=== PATIENT | male | born 1970 | race African-American/Black ===

== ENCOUNTER 2016-12-02 21:23 | Emergency (ER) | payer OTHER, MEDICAID ==
[2016-12-02] MEDS ORDERED: IPRATROPIUM/ALBUTEROL 3 ML DEYVIAL ONE (21:27)
[2016-12-02 21:36] VITALS: TEMP 98.4
[2016-12-02] MEDS ORDERED: IPRATROPIUM/ALBUTEROL 3 ML DEYVIAL IH ONE (21:36)
--- NOTE | 2016-12-02 21:41 | EDPHY ---
H & P Stated Complaint: Asthma Attack & N/V - Personal History Current Tetanus/Diphtheria Vaccine: Yes Current Tetanus Diphtheria and Acellular Pertussis (TDAP): Yes - Medical/Surgical History Hx Asthma: Yes Hx Chronic Respiratory Disease: No Hx Diabetes: No Hx Cardiac Disease: No Hx Renal Disease: No Hx Cirrhosis: No Hx Alcoholism: No Hx HIV/AIDS: No Hx Splenectomy or Spleen Trauma: No Other PMH: asthma, ID, HTN - Social History Smoking Status: Current every day smoker Time Seen by Provider: 12/02/16 21:26 HPI/ROS: Chief complaint: Shortness of breath, abdominal pain HPI: 46-year-old male states he has a history of asthma complaining of shortness of breath today. Patient states that he has not been sleeping since using meth 2 days ago. He drinks some alcohol and a food this evening and which gave him some epigastric abdominal pain with some nausea. No vomiting. No fevers or chills. Has not been taking any of his usual medications. States he does not recall with these are. Does not normally take medications. He is currently homeless he states. Is visiting from [place]. Has had a nonproductive cough consistent with his prior asthma exacerbations. ROS: 10 point Review of Systems is negative except as noted in the HPI. Past medical history: Asthma, hypertension, lymphoma in remission Medications: None Allergies: No known drug allergies Physical exam: Gen: Awake, Alert, No Distress HEENT: Nose: no rhinorrhea Eyes: PERRLA, EOMI Mouth: Moist mucosa Neck: Supple, no JVD Chest: nontender, diffuse expiratory wheeze without focal rales or rhonchi Heart: S1, S2 normal, no murmur Abd: Soft, mild epigastric tenderness, no guarding Back: no CVA tenderness, no midline tenderness Ext: no edema, non-tender Skin: no rash Neuro: CN II-XII intact, Sensation grossly intact, Strength 5/5 in bilateral upper and lower extremities (Alex Castro) Constitutional: Initial Vital Signs Temperature (C) 36.9 C 12/02/16 21:34 Heart Rate 94 12/02/16 21:34 Respiratory Rate 28 H 12/02/16 21:34 Blood Pressure 150/101 H 12/02/16 21:34 O2 Sat (%) 87 L 12/02/16 21:34 O2 Delivery Mode Room Air Allergies/Adverse Reactions: No Known Allergies Allergy (Unverified 12/02/16 21:34) Home Medications: Medication Instructions Recorded Hydrocortisone 1% [Hydrocortisone 30 jim TP BID #1 cream 12/02/16 1% cream (*)] predniSONE 60 mg PO DAILY #9 tab 12/02/16 Medical Decision Making ED Course/Re-evaluation: Patient presenting with asthma exacerbation with epigastric pain. Patient's pain improved after treating of his wheeze. LFTs, CBC, chemistry and lipase are all normal. Patient is having improvement in his breathing after a DuoNeb. He will be given Solu-Medrol 125 mg IV and a continuous neb. I anticipate that he improve he will go home and follow up with [facility] as an outpatient. (Alex Castro) [id number]: She is feeling much better after continuous breathing treatment. Patient was signed over to me at 11:00 p.m. shift change from Dr. Castro. Plan for this patient is to have a continuous breathing treatment and then discharge she is doing much better on re-examination of his hands he has clear, no hypoxia , oxygen saturation 98% on room air. Patient feels comfortable with discharge planning. At time of discharge he did request some cream for his eczema. I prescribed him 1% hydrocortisone cream. Patient also asking for something to eat. (Matthew Patel) - Data Points Laboratory Results: Laboratory Results 12/02/16 21:30 12/02/16 21:30 12/02/16 12/02/16 21:30 21:30 WBC 8.92 10^3/uL 10^3/uL (3.80-9.50) RBC 4.94 10^6/uL 10^6/uL (4.40-6.38) Hgb 14.9 g/dL g/dL (13.7-17.5) Hct 45.7 % % (40.0-51.0) MCV 92.5 fL fL (81.5-99.8) MCH 30.2 pg pg (27.9-34.1) MCHC 32.6 g/dL g/dL (32.4-36.7) RDW 14.1 % % (11.5-15.2) Plt Count 236 10^3/uL 10^3/uL (150-400) MPV 11.8 fL H fL (8.7-11.7) Neut % (Auto) 56.5 % % (39.3-74.2) Lymph % (Auto) 27.2 % % (15.0-45.0) [place] % (Auto) 6.3 % % (4.5-13.0) Eos % (Auto) 8.9 % H % (0.6-7.6) Baso % (Auto) 1.0 % % (0.3-1.7) Nucleat RBC Rel Count 0.0 % % (0.0-0.2) Absolute Neuts (auto) 5.04 10^3/uL 10^3/uL (1.70-6.50) Absolute Lymphs (auto) 2.43 10^3/uL 10^3/uL (1.00-3.00) Absolute Monos (auto) 0.56 10^3/uL 10^3/uL (0.30-0.80) Absolute Eos (auto) 0.79 10^3/uL H 10^3/uL (0.03-0.40) Absolute Basos (auto) 0.09 10^3/uL 10^3/uL (0.02-0.10) Absolute Nucleated RBC 0.00 10^3/uL 10^3/uL (0-0.01) Immature Gran % 0.1 % % (0.0-1.1) Immature Gran # 0.01 10^3/uL 10^3/uL (0.00-0.10) Sodium 144 mEq/L mEq/L (134-144) Potassium 4.0 mEq/L mEq/L (3.5-5.2) Chloride 104 mEq/L mEq/L (97-110) Carbon Dioxide 27 mEq/l mEq/l (22-31) Anion Gap 13 mEq/L mEq/L (8-16) BUN 15 mg/dL mg/dL (7-23) Creatinine 0.9 mg/dL mg/dL (0.7-1.3) Estimated GFR > 60 Glucose 52 mg/dL L mg/dL (70-100) Calcium 9.6 mg/dL mg/dL (8.5-10.4) Total Bilirubin 0.6 mg/dL mg/dL (0.1-1.4) Conjugated Bilirubin 0.3 mg/dL mg/dL (0.0-0.5) Unconjugated Bilirubin 0.3 mg/dL mg/dL (0.0-1.1) AST 26 IU/L IU/L (17-59) ALT 30 IU/L IU/L (21-72) Alkaline Phosphatase 53 IU/L IU/L (38-126) Total Protein 7.4 g/dL g/dL (6.3-8.2) Albumin 4.4 g/dL g/dL (3.5-5.0) Lipase 124.0 IU/L IU/L (23-300) Medications Given: Discontinued Medications Albuterol (Proventil Neb) 10 ml IH EDNOW ONE Stop: 12/02/16 22:05 Last Admin: 12/02/16 22:35 Dose: 10 ml Albuterol/Ipratropium (Duoneb) 3 ml IH EDNOW ONE Stop: 12/02/16 21:37 Last Admin: 12/02/16 21:36 Dose: 3 ml Methylprednisolone Sodium Succinate (Solu-Medrol) 125 mg IVP EDNOW ONE Stop: 12/02/16 22:05 Last Admin: 12/02/16 22:30 Dose: 125 mg Departure - Departure Disposition: Home, Routine, Self-Care Clinical Impression: Exacerbation of asthma Condition: Good Instructions: Asthma (ED) Additional Instructions: Use your inhaler 2 puffs every 2 hours as needed for wheeze. Take her full course of prednisone for the next 3 days. Follow up at the [facility] for further evaluation. Referrals: Patient,NotPresent [Unknown] - As per Instructions Prescriptions: Hydrocortisone 1% [Hydrocortisone 1% cream (*)] 30 jim TP BID #1 cream predniSONE 60 mg PO DAILY #9 tab
[2016-12-02 21:46] LABS: % IMMATURE GRANULYOCYTES 0.1 % (0.0-1.1); ABSOLUTE IMMATURE GRANULOCYTES 0.01 10^3/uL (0.00-0.10); ADD DIFF? NO; ADD MORPH? NO; ADD SCAN? NO; ATYPICAL LYMPHOCYTE FLAG 40 (0-99); FRAGMENT RBC FLAG 0 (0-99); HEMATOCRIT 45.7 % (40.0-51.0); HEMOGLOBIN 14.9 g/dL (13.7-17.5); LEFT SHIFT FLG 0 (0-99); LIPEMIA HEMOLYSIS FLAG 80 (0-99); MEAN CELL HEMOGLOBIN 30.2 pg (27.9-34.1); MEAN CELL HEMOGLOBIN CONCENTR. 32.6 g/dL (32.4-36.7); MEAN CELL VOLUME 92.5 fL (81.5-99.8); MEAN PLATELET VOLUME 11.8 fL (8.7-11.7); PLATELET CLUMPS FLAG 10 (0-99); PLATELET COUNT 236 10^3/uL (150-400); RED BLOOD CELL COUNT 4.94 10^6/uL (4.40-6.38); RED CELL DISTRIBUTION WIDTH 14.1 % (11.5-15.2)
[2016-12-02 21:53] LABS: ALANINE AMINOTRANSFERASE 30 IU/L (21-72); ALBUMIN 4.4 g/dL (3.5-5.0); ALKALINE PHOSPHATASE 53 IU/L (38-126); ANION GAP 13 mEq/L (8-16); ASPARTATE AMINOTRANSFERASE 26 IU/L (17-59); BILIRUBIN,TOTAL 0.6 mg/dL (0.1-1.4); BILIRUBIN-CONJUGATED 0.3 mg/dL (0.0-0.5); BILIRUBIN-UNCONJUGATED 0.3 mg/dL (0.0-1.1); CALCIUM 9.6 mg/dL (8.5-10.4); CARBON DIOXIDE 27 mEq/l (22-31); CHLORIDE 104 mEq/L (97-110); CREATININE 0.9 mg/dL (0.7-1.3); GLOMERULAR FILTRATION RATE > 60; GLUCOSE 52 mg/dL (70-100); SODIUM 144 mEq/L (134-144); TOTAL PROTEIN 7.4 g/dL (6.3-8.2)
[2016-12-02] MEDS ORDERED: methylPREDNISolone SOD SUCC 125 MG/2 ML VIAL IVP ONE (22:04)
[2016-12-02] MEDS ORDERED: ALBUTEROL 3 ML DEYVIAL IH ONE (22:04)
[2016-12-02] MEDS ORDERED: ALBUTEROL INH PREPACK MDI TAKEHOME ONE (22:35)
[2016-12-03 00:30] VITALS: BP 163/101; PULSE 78; RESP 20; O2SAT 96
== END 2016-12-03 00:10 | disposition home or self-care (01) ==
DX: J45.901 Unspecified asthma with (acute) exacerbation (principal); F17.200 Nicotine dependence, unspecified, uncomplicated; I10 Essential (primary) hypertension; I25.2 Old myocardial infarction
CPT/HCPCS: 96374